=== PATIENT | male | born 1935 | race Caucasian/White ===

== ENCOUNTER → 2018-07-18 | Outpatient (CLI) | payer OTHER | LOC: GMAL 12:11 | PROVIDERS: ATTEND Family Medicine | DX: D51.3 Other dietary vitamin B12 deficiency anemia (principal); R53.83 Other fatigue; E55.9 Vitamin D deficiency, unspecified ==

== ENCOUNTER → 2018-11-22 | Outpatient (CLI) | payer OTHER ==
--- NOTE | 2018-11-22 16:51 | US ---
EXAM DESCRIPTION: Carotid Duplex: ULTRASOUND. CLINICAL HISTORY: 83 years Male I65.29 COMPARISON: Duplex ultrasound evaluation of the bilateral kidneys and the renal arteries. TECHNIQUE: Transcutaneous scanning utilizing macias-scale and Doppler modes to evaluate the bilateral carotid systems and vertebral arteries. Percentage of diameter of stenosis or no stenosis recorded will be based upon NASCET criteria. FINDINGS: Peak systolic/end diastolic (CM-Sec) CCA Right 73/17 Left 85/19. ICA Right proximal 56/13, mid 91/20. Left proximal 56/11, mid 103/28. Vertebral Right 68/14 Left 89/25. ECA (PS Only) Right 78 left 62. ICA/CCA peak systolic ratio: Right 1.2 Left 1.2 ICA/CCA end diastolic ratio: Right 1.1 Left 1.4 Vertebral arteries: antegrade flow. Comments: Atherosclerotic calcification in the right common carotid bifurcation and proximal right ICA. Color turbulent flow in the proximal right ICA. Spectral broadening in the proximal and mid right ICA. Area and diameter stenosis in the proximal right ICA is less than 40%. Atherosclerotic calcification in the distal left common carotid. Color turbulent flow, and spectral broadening in the proximal left ICA. Area stenosis in diameter stenosis in the left common carotid bulb less than 40%. IMPRESSION: 1. Doppler evaluation of the bilateral carotid systems and vertebral arteries shows no hemodynamically significant stenoses. 2. No significant amount of plaque seen in the carotid arteries bilaterally. Bilateral vertebral arteries showed antegrade-cephalad flow. Electronically signed by: Lee Delgadillo MD 11/22/2018 4:48 PM PLANT PHYSIOLOGIST
--- NOTE | 2018-11-23 08:21 | US ---
EXAM DESCRIPTION: Renal: Ultrasound. CLINICAL HISTORY: 83 years Male I70.1. Atherosclerosis of aorta. History of uncontrolled hypertension. COMPARISON: Bilateral renal arterial Doppler evaluation on the same visit. TECHNIQUE: Transcutaneous scanning: Two-dimensional and Doppler modes. FINDINGS: Right kidney measures 10.5 x 5.9 x 5.5 cm; mid-renal cortical thickness 13 mm. . Heterogeneous increased echogenicity. No hydronephrosis No echogenic stones. 9.2 x 5.1 mm cortical cyst. Prominent renal pyramids. Lobulated contour of the kidney with no perinephric fluid. Normal vascularity. Proximal ureter not visualized. Left kidney measures 11.3 x 5.8 x 5.4 cm; mid-renal cortical thickness 12 mm.. Heterogeneously increased echogenicity. No hydronephrosis. No echogenic stones. Prominent renal pyramids. 8.7 x 7.5 mm cortical cyst. Lobulated contour of the kidney with no perinephric fluid. Normal vascularity.. Proximal ureter not visualized. Urinary bladder was visualized. Prevoid volume not measured. Ureteral jet in the bladder seen bilaterally by Doppler. No voiding. Abdominal aorta: not measured. Prostate gland measures 5.5 x 3.7 x 4.1 cm heterogeneous low echoes. IMPRESSION: 1. Bilateral kidneys with heterogeneous echogenic cortex and minimal thinning. Lobulated capsule. This could be related to hypertension or age. Prominent renal pyramids bilaterally. More likely related to age. Bilateral cysts. Overall renal size unremarkable. No hydronephrosis or perinephric fluid. 2. Bilateral ureteral jets were seen within the urinary bladder. Large prostate gland abutting the base of the bladder. Electronically signed by: Lee Delgadillo MD 11/23/2018 8:19 AM [employer] HALL MANAGER
--- NOTE | 2018-11-23 08:53 | US ---
EXAM DESCRIPTION: Renal Arteries CLINICAL HISTORY: I01.1 COMPARISON: Two-dimensional ultrasound evaluation of the bilateral kidneys on the same visit. TECHNIQUE: Transcutaneous scanning: Two-dimensional modes. Doppler systolic and diastolic measurements of the abdominal aorta, renal arteries, intra renal arteries, and renal veins. FINDINGS: PSV (cm/sec): Aorta: 55.9 Right renal artery: 122.6 Left renal artery: 173.4 EDV (cm/sec): Right renal artery: 34.5 Left renal artery: 38.6 Renal veins: Visualized IVC: Visualized Intrarenal RI's: Proximal Right: 0.67 Left: Not available. Middle/Interlobular Right: 0.72 Left: 0.71. Distal Right: 0.74 Left: 0.70 Renal Aortic Ratio: Right RAR = RRA PSV/Aortic PSV = 122.6 /55.9= 2.19. Left RAR = LRA PSV/Aortic PSV = 173.4/55.9 = 3.1. End Diastolic Ratio: Right EDR = RRA EDV/RRA PSV = 34.5/122.6 = 0.281. Left EDR = LRA EDV/LRA PSV = 38.6/173.4= 0.223. Other: None. IMPRESSION: 1. Renal aortic ratio on the left value approximates left renal artery stenosis. Right renal aortic ratio is within normal range. 2. Left renal end-diastolic ratio and intrarenal arterial RI values indicate significant renal vascular parenchymal disease. Electronically signed by: Lee Delgadillo MD 11/23/2018 8:51 AM FINISHER SCREWDOWN
== END ==
LOC: US 08:49
PROVIDERS: ATTEND Family Medicine
DX: I65.29 Occlusion and stenosis of unspecified carotid artery (principal); I70.1 Atherosclerosis of renal artery; R01.1 Cardiac murmur, unspecified; N28.1 Cyst of kidney, acquired; N40.0 Benign prostatic hyperplasia without lower urinary tract symptoms

== ENCOUNTER → 2019-09-07 | Outpatient (CLI) | payer OTHER ==
--- NOTE | 2019-09-08 18:22 | MRI ---
EXAM DESCRIPTION: Brain w/wo Contrast: Magnetic Resonance Imaging. CLINICAL HISTORY: Benign paroxysmal vertigo, bilateral COMPARISON: None. TECHNIQUE: Diffusion axial imaging of the brain. Multiplanar high-field unit, multiple conventional sequences through the IACs, and the brain, before and after 5 kg/mL gadolinium IV contrast. No adverse reactions. FINDINGS: Normal signal in the IACs with no abnormal enhancement and no mass. No fluid in the mastoid air cells. Normal contour of the cerebellopontine angles with no mass, normal enhancement. Normal flow signal void in the major vessels of the [place] and venous sinuses. Paranasal sinuses are minimally thickened. No air-fluid levels.. Pituitary gland occupies most of the sella compartment. Normal contrast enhancement. Bony calvarium is intact. Base of the cerebellar tonsils is at the level of the foramen magnum. Bilateral confluent and multifocal hyperintense FLAIR and T2-weighted signal in the periventricular white matter and macias-white matter junctions of the cerebral hemispheres. Relatively symmetric. Also involving the centrum semiovale with multifocal subcortical white matter lesions more inferiorly. Normal signal in the bilateral basal ganglia. No hemorrhage, no cerebral edema, no mass-effect. Normal signal in the brainstem and cerebellar hemispheres. No hemorrhage, no cerebral edema, no mass-effect. Concordance of the diffusion and non-diffusion sequences with no evidence of acute or subacute infarction. Cortical sulci, ventricles, and other CSF spaces, and the subdural spaces are normally configured..No effacement or displacement. No midline shift. No extra-axial hemorrhage. IMPRESSION: No abnormal enhancement mass effect edema or diffusion restriction in the brainstem or cerebellar pontine angles or cerebellum. Bilateral periventricular white matter disease and bilateral multifocal subcortical white matter disease relatively symmetric not associated with hemorrhage cerebral edema or diffusion restriction. Less likely related to aging and/or cerebral microvascular disease. Electronically signed by: Lee Delgadillo MD 09/08/2019 6:20 PM [facility]
== END | disposition home or self-care (01) ==
LOC: LAB.O 08:05
PROVIDERS: ATTEND Family Medicine
DX: H81.13 Benign paroxysmal vertigo, bilateral (principal); I10 Essential (primary) hypertension

== ENCOUNTER → 2019-09-20 | Outpatient (CLI) | payer OTHER | LOC: GMAL 10:40 | PROVIDERS: ATTEND Family Medicine | DX: Z12.5 Encounter for screening for malignant neoplasm of prostate (principal); D51.3 Other dietary vitamin B12 deficiency anemia; I10 Essential (primary) hypertension; R53.83 Other fatigue; E55.9 Vitamin D deficiency, unspecified; Z79.899 Other long term (current) drug therapy | CPT/HCPCS: 82306; 82607; 84443; G0103 ==

== ENCOUNTER → 2020-11-20 | Outpatient (CLI) | payer OTHER | LOC: GMAL 11:41 | PROVIDERS: ATTEND Family Medicine | DX: D51.3 Other dietary vitamin B12 deficiency anemia (principal); E55.9 Vitamin D deficiency, unspecified; I10 Essential (primary) hypertension; R53.83 Other fatigue; R73.09 Other abnormal glucose; I50.30 Unspecified diastolic (congestive) heart failure; Z12.5 Encounter for screening for malignant neoplasm of prostate; E29.1 Testicular hypofunction | CPT/HCPCS: 82306; 82607; 84402; 84403; 84439; 84443; G0103 ==

== ENCOUNTER → 2020-12-15 | Outpatient (CLI) | payer MEDICARE, OTHER ==
--- NOTE | 2020-12-16 09:43 | CT ---
EXAM DESCRIPTION: CTA Neck CLINICAL HISTORY: 85 years Male, STENOSIS COMPARISON: None. TECHNIQUE: Helical CT images are acquired from aortic arch to skull base following intravenous contrast. Multi-planar reformations provided. This examination was performed according to a CT angiographic (CTA) protocol with 3D post-processing. This involves 3D reconstructions, MIPS, volume rendered images and/or shaded surface rendering. This exam was performed according to our departmental dose-optimization program, which includes automated exposure control, adjustment of the mA and/or kV according to patient size and/or use of iterative reconstruction technique. FINDINGS: Cervical-cerebral arch: Conventional branching of the aortic arch. Patent origins of the great vessels and visualized subclavian arteries. Right carotid system: Mild-moderate calcified atherosclerosis at the carotid bifurcation. The estimated internal carotid stenosis by NASCET criteria is 0%. Left carotid system: Moderate soft tissue and calcified atherosclerosis at the carotid bifurcation extending into the carotid bulb. The estimated internal carotid stenosis by NASCET criteria is 15%. Vertebral arteries: Moderate calcified atherosclerosis at the origin of the right vertebral artery with 50% stenosis. Tortuosity and narrowing of the proximal left vertebral artery from its origin with up to 50% stenosis. Musculoskeletal: No acute fracture or aggressive appearing osseous lesion. Soft tissues unremarkable. Other findings: 15 mm hypodense right thyroid nodule with eccentric calcification. Dense consolidation in the posterior right upper lobe along the right major fissure. There is adenopathy and soft tissue density extending from the hilum into the right paratracheal mediastinum. IMPRESSION: 1. 50% stenosis left internal carotid artery. 2. No significant stenosis of the right internal carotid artery. 3. Consolidation posterior right upper lobe with soft tissue density and adenopathy in the right hilum extending into the right paratracheal mediastinum. This is most concerning for malignancy and metastatic adenopathy. CT chest with contrast recommended to further evaluate. 4. Right thyroid nodule as above. Dedicated ultrasound of the thyroid gland recommended to further evaluate. COMMENT: All internal carotid artery stenoses are calculated based on NASCET criteria. Electronically signed by: Brad Lane MD 12/16/2020 9:41 AM ENVIRONMENTAL SUSTAINABILITY MANAGER
== END ==
LOC: CT 10:14
PROVIDERS: ATTEND Family Medicine
DX: I65.22 Occlusion and stenosis of left carotid artery (principal); R91.8 Other nonspecific abnormal finding of lung field; R59.9 Enlarged lymph nodes, unspecified; E04.1 Nontoxic single thyroid nodule